=== PATIENT | male | born 1960 | race Hispanic/Latino ===

== ENCOUNTER → 2017-04-06 | Outpatient (CLI) | payer OTHER ==
[2017-04-06 13:47] LABS: ALBUMIN 4.2 g/dL (3.5-5.0); BILIRUBIN,TOTAL 0.5 mg/dL (0.2-1.0); CREATININE 0.8 mg/dL (0.5-1.5); POTASSIUM 3.7 mmol/L (3.5-5.1); TOTAL PROTEIN, SERUM 7.9 g/dL (6.0-8.3)
== END | disposition home or self-care (01) ==
LOC: LAB 12:47
PROVIDERS: ATTEND Urology
DX: N20.0 Calculus of kidney (principal); R97.20 Elevated prostate specific antigen [PSA]
CPT/HCPCS: 36415; 80053; 84153

== ENCOUNTER → 2017-04-07 | Outpatient (CLI) | payer OTHER ==
[~2017-04-07] MED LIST: IOPAMIDOL-370 100 ML VIAL IV ONE
== END | disposition home or self-care (01) ==
LOC: RAH 07:14
PROVIDERS: ATTEND Urology
DX: N20.0 Calculus of kidney (principal)
CPT/HCPCS: 74176; 74400; Q9967

== ENCOUNTER 2024-10-05 17:57 | Emergency (ER) | payer BC, OTHER ==
[~2024-10-05] VITALS: Ht 177.8 cm; Wt 83.9 kg
--- NOTE | 2024-10-05 18:21 | ERN ---
ED Note History of Present Illness Stated Complaint: LEG CRAMPING Chief Complaint: Other Problems Time Seen by MD: 18:01 Time Seen by Midlevel: 18:15 Dictation: Mr. Miles is a 64-year-old gentleman with history of hypertension, hyperlipidemia, and type 2 diabetes who was transported via EMS to the emergency department this evening for evaluation leg cramping. He states that he was working for several hours outside in the high heat and developed fatigue, general weakness, nausea without emesis, and cramping in bilateral legs. He denies fever, chills, shortness of breath, cough, chest pain, palpitations, edema, abdominal pain, vomiting, hematemesis, constipation, diarrhea, melena, hematochezia, dysuria, headache, dizziness, or focal weakness/paresthesia Allergies: Coded Allergies: No Known Drug Allergies (Unverified Allergy, Unknown, 10/05/24) Emergency Care FLIGHT SERVICE SPECIALIST: None Past Medical History Past Medical History: Diabetes-Type II, High Cholesterol, Hypertension Surgical History: None PSYCH History: no pertinent psych hx Social History: Negative, Lives with family RN Note Reviewed/Agreed w/PFSH: Yes Review of System Dictation REVIEW OF SYSTEMS: CONSTITUTIONAL: Patient denies fevers, chills, sweats and weight changes. Reports fatigue and general weakness. EYES: Patient denies any visual symptoms. EARS, NOSE, AND THROAT: No difficulties with hearing. No symptoms of rhinitis or sore throat. CARDIOVASCULAR: Patient denies chest pains, palpitations, orthopnea and paroxysmal nocturnal dyspnea. RESPIRATORY: No dyspnea on exertion, no wheezing or cough. GI: No vomiting, diarrhea, constipation, abdominal pain, hematochezia or melena. Reports nausea : No urinary hesitancy or dribbling. No nocturia or urinary frequency. No abnormal urethral discharge. MUSCULOSKELETAL: Reports cramping to bilateral lower legs/calves. NEUROLOGIC: No chronic headaches, no seizures. Patient denies numbness, tingling or weakness. PSYCHIATRIC: Patient denies problems with mood disturbance. No problems with anxiety. ENDOCRINE: No excessive urination or excessive thirst. DERMATOLOGIC: Patient denies any rashes or skin changes. Initial Vital Sign VS Vital Signs Date Time Temp Pulse Resp B/P (MAP) Pulse Ox O2 Delivery O2 Flow Rate FiO2 10/05/24 18:00 98.2 83 18 126/74 97 Room Air 0 10/05/24 18:02 21 Physical Exam Dictation Vital signs: Reviewed. Afebrile Constitutional: No acute distress. Significant other at bedside Head/Face: Normocephalic, atraumatic. Eyes: Periorbital areas with no swelling, redness, or edema. Lids and lashes are normal. Conjunctival injection is absent. Sclera anicteric. Pupils equal, round, reactive to light. ENT: Pinnas intact and no signs of trauma or erythema. Ear canals clear and no discharge. TMs no erythema. No nasal discharge or bleeding noted. Oropharynx with no exudate, redness, swelling, masses, exudates, or evidence of obstruction. Uvula midline. Mucous membranes slightly dry. Neck: Trachea midline, no masses palpated, and no cervical lymphadenopathy. No swelling. Supple, full range of motion. Chest/Axilla: No tenderness, no crepitus, no paradoxical movement, no retractions. Cardiovascular: Regular rate, regular rhythm, no murmur, no gallops. Symmetric pulses. No peripheral edema. Normotensive; 126/74. Respiratory: Respirations even and unlabored. Lung sounds clear; no wheezes, rales or rhonchi. Room air SpO2 97% Gastrointestinal: Inspection is normal. No distention is appreciated. Bowel sounds are normal. No mass or organomegaly . There is no tenderness. No rebound. No rigidity. No voluntary or involuntary guarding. No Ravi's sign. Neurological: Normal speech, gross motor function intact, gross sensory function intact. No focal weakness/Paresthesia. Musculoskeletal/Extremities: All extremities have full range of motion, no pain or tenderness on palpation. Symmetric pulses. Integumentary: Intact. Skin is normal color, warm and dry. Cap refill less than 3 seconds. Results (Laboratory/Radiology) Laboratory/Radiology Laboratory Tests Test 10/05/24 19:11 White Blood Count 8.9 K/uL (4.8-10.8) Red Blood Count 5.14 MIL/uL (4.50-6.20) Hemoglobin 15.4 g/dL (14.0-18.0) Hematocrit 44.7 % (42-54) Mean Corpuscular Volume 87.0 fL (79-99) Mean Corpuscular Hemoglobin 30.0 pg (27.0-33.0) Mean Corpuscular Hemoglobin Concent 34.5 g/dL (32.0-36.0) Red Cell Distribution Width 13.2 % (11.0-15.5) Platelet Count 150 K/uL (130-400) Mean Platelet Volume 10.8 fL (7.5-10.5) H Immature Granulocyte % (Auto) 0.2 % (0-1) Neutrophils (%) (Auto) 57.8 % (40.0-77.0) Lymphocytes (%) (Auto) 22.6 % (21.0-51.0) Monocytes (%) (Auto) 9.6 % (3.0-13.0) Eosinophils (%) (Auto) 8.9 % (0.0-8.0) H Basophils (%) (Auto) 0.9 % (0.0-5.0) Neutrophils # (Auto) 5.1 K/uL (1.8-7.7) Lymphocytes # (Auto) 2.0 K/uL (1.0-4.8) Monocytes # (Auto) 0.9 K/uL (0.1-1.0) Eosinophils # (Auto) 0.79 K/uL (0.00-0.70) H Basophils # (Auto) 0.08 K/uL (0.00-0.20) Absolute Immature Granulocyte (auto 0.02 K/uL (0-1) Nucleated Red Blood Cells 0.0 % (0.0-0.19) Sodium Level 139 mmol/L (136-145) Potassium Level 4.4 mmol/L (3.5-5.1) Chloride Level 101 mmol/L (101-111) Carbon Dioxide Level 29 mmol/L (21-32) Blood Urea Nitrogen 23 mg/dL (7-18) H Creatinine 1.2 mg/dL (0.5-1.3) Glomerular Filtration Rate Calc 68 mL/min (>90) Random Glucose 93 mg/dL (70-105) Total Calcium 8.5 mg/dL (8.5-10.1) Magnesium Level 2.20 mg/dL (1.80-2.40) Labs Reviewed?: Yes ED Course ED Course Orders Procedure Category Date Status Time Cbc With Differential LAB 10/05/24 Complete 18:20 Basic Metabolic Panel LAB 10/05/24 Complete 18:20 Magnesium LAB 10/05/24 Complete 18:20 0.9%Nacl 1000ml (Ns PHA 10/05/24 In Process 1000ml) 18:30 Current Medications Medications (Trade) Dose Ordered Sig/Farrukh Route PRN Reason Start Time Stop Time Status Last Admin Dose Admin Sodium Chloride 1,000 ml @ 0 mls/hr ONCE IV 10/05/24 18:30 10/06/24 18:29 10/05/24 18:42 Vital Signs Date Time Temp Pulse Resp B/P (MAP) Pulse Ox O2 Delivery O2 Flow Rate FiO2 10/05/24 18:02 98.2 83 18 126/74 97 Room Air* 0 21 10/05/24 18:00 98.2 83 18 126/74 97 Room Air 0 Uneventful ED course. Patient arrives with stable vital signs; normotensive and afebrile with room air SpO2 97%. Heart rate 83. Laboratory findings as noted below. No elevation of WBCs. H&H are stable. BUN 23 and BUN/creatinine ratio 19. Patient received NS bolus 1000 mL. He is tolerating p.o. fluids well and states symptoms resolved. He denies further complaints of nausea or like cramping. Ambulating with steady gait. Medical Decision Making MDM MDM: Differential diagnosis: Acute dehydration, electrolyte derangement, heat related injury Rationale: Tests considered and ordered secondary to shared decision making include: Lab Previous outside records reviewed: Old ER visits. Risk of complication and/or morbidity or mortality of patient management: None Medications-Per medication reconciliation Need for hospitalization: Patient does not meet criteria for hospitalization. Need for emergency major/minor surgery: No There are no social concerns with this patient. Prescription drug management: None Prescriptions will include symptomatic care Patient's prior external medical records from other ER visits were reviewed by me as indicated. Prior testing and results from previous visits were reviewed. Prior tests were taken into account with medical decision making and resource utilization, independent historian/historians were used to obtain complete medical history. I independently interpreted the test that were performed, results were reviewed by me and considered findings on radiology if ordered. Medical management and examination interpretation discussions were had by me with other qualified healthcare professionals as indicated for the patient's care. DX & DISP Disposition: Discharge Departure Impression: Primary Impression: Heat exposure Additional Impressions: Mild dehydration, Leg cramps Condition: Stable Additional Instructions: You were evaluated for symptoms related to heat exposure, dehydration, and musc le cramps. Your symptoms were likely caused by being in hot environment for too long, leading to loss of body fluids at electrolytes. This can cause muscle cramps, dizziness, weakness, headache, and fatigue. In more severe cases, heat exhaustion or heat stroke could occur-these are medical emergencies. At home you need to drink plenty of fluids over the next 24-48 hours. Aim for water and electrolyte containing drinks such as Gatorade, Pedialyte, or coconut water. Avoid alcohol and caffeine until fully recovered. Stay in a cool, shaded or air-conditioned environment. Avoid strenuous activity for at least 24 hours or until symptoms have resolved. For your muscle cramps gentle stretching and massage of the affected muscle. Eat balanced meals as sodium, potassium, magnesium, and calcium sources examples include bananas, leafy greens, dairy, nuts, and lean proteins. Wear loose, light colored clothing in hot weather. Take frequent breaks in the shade or cool areas. Schedule outdoor activities for cooler parts at a. Use sunscreen to prevent borges which can worsened fluid loss. Stay hydrated before, during, and after heat exposure. Return to the emergency department if you have: Confusion, fainting, or trouble speaking. If you have fever greater than 103. If you have rapid heartbeat, trouble breathing, or chest pain. If you have persistent vomiting or inability to keep fluids down. If you have worsening muscle cramps the do not improve with rest and hydration. If you have signs of dehydration: Little or no urine, very dark urine, dry mouth, or dizziness. Follow up with your primary care provider in the next two days. Return to the emergency department for any worsening of symptoms or concerns. Referrals: Vicki PEÑALOZA MD (PCP) Time of Disposition: 19:51 JOHN ALICEA NP Oct 05, 2024 18:21
[2024-10-05] MEDS: 0.9%NACL 1000ML 1,000 ML IV SCH (18:42)
[2024-10-05 19:25] LABS: IMMATURE GRANULOCYTE ABSOLUTE 0.02 K/uL (0-1); NUCLEATED RED BLOOD CELLS 0.0 % (0.0-0.19); PLATELET COUNT (AUTO) 150 K/uL (130-400); RED BLOOD CELL COUNT(AUTO) 5.14 MIL/uL (4.50-6.20); RED CELL DISTRIBUTION WIDTH 13.2 % (11.0-15.5); WHITE BLOOD COUNT (AUTO) 8.9 K/uL (4.8-10.8)
[2024-10-05 19:31] LABS: CREATININE 1.2 mg/dL (0.5-1.3); GLOMERULAR FILTR. RATE CALC 68.0 mL/min (>90); GLUCOSE,RANDOM 93.0 mg/dL (70-105); SODIUM SERUM 139.0 mmol/L (136-145); UREA NITROGEN, BLOOD 23.0 mg/dL (7-18)
--- NOTE | 2024-10-05 19:48 | NUR ---
TRANSFERED CARE TO [facility] AT THIS TIME
[2024-10-05 19:57] VITALS: BP 131/70; PULSE 78; RESP 18; TEMP 98.3; O2SAT 98
== END 2024-10-05 20:06 | disposition home or self-care (01) ==
LOC: EDH 17:57
DX: T67.9XXA Effect of heat and light, unspecified, initial encounter (principal); E86.0 Dehydration; R25.2 Cramp and spasm; E11.9 Type 2 diabetes mellitus without complications; E78.00 Pure hypercholesterolemia, unspecified; I10 Essential (primary) hypertension; X58.XXXA Exposure to other specified factors, initial encounter; Y93.89 Activity, other specified; Y92.89 Other specified places as the place of occurrence of the external cause; Y99.8 Other external cause status
CPT/HCPCS: 99283; 83735; 80048; 85025; 36415; J7030